=== PATIENT | male | born 1965 | race Hispanic/Latino ===

== ENCOUNTER 2024-05-31 12:09 | Emergency (ER) | payer OTHER | END 2024-05-31 13:37 | disposition home or self-care (01) | LOC: MADERS 12:09 | DX: H60.91 Unspecified otitis externa, right ear (principal); H73.91 Unspecified disorder of tympanic membrane, right ear; E11.9 Type 2 diabetes mellitus without complications; Z55.6 Problems related to health literacy | CPT/HCPCS: 99282 ==

== ENCOUNTER 2025-09-12 13:54 | Emergency (ER) | payer BC, SELFPAY ==
[2025-09-12] MEDS ORDERED: Vancomycin HCl 1.5 GM VIAL ONE (14:36)
[2025-09-12] MEDS ORDERED: Acetaminophen 500 MG TAB ONE (14:36)
[2025-09-12 14:58] LABS: INR-International Normal Ratio 1.5; Prothrombin Time 18.1 sec (12.0-14.7)
[2025-09-12 14:59] LABS: PTT 37.7 sec (22.9-36.1)
[2025-09-12 15:06] LABS: Hematocrit 32.0 % (42.0-52.0); Hemoglobin 10.9 g/dL (14.0-18.0); Manual Diff?? YES; Mean Corpuscular Hemoglobin 28.1 pg (27.0-31.0); Mean Corpuscular Volume 82.7 fl (78.0-98.0); Platelet Count 183 10x3/uL (130-400); Red Blood Cell (RBC) Count 3.87 mill/uL (4.70-6.10); White Blood Cell (WBC) Count 22.0 10x3/uL (4.8-10.8)
[2025-09-12 15:09] LABS: Bicarbonate (HCO3v) 24.5 mmol/L (22.0-28.0); CO2 Tension (PvCO2) 33.9 mmHg (42.0-51.0); Calcium, Ionized 1.06 mmol/L (1.15-1.33); Chloride 96 mmol/L (98-107); Hemoglobin - Calc 11.5 g/dL (14.0-18.0); Potassium 4.5 mmol/L (3.5-5.1); Sodium 130 mmol/L (138-145); T. Carbon Dioxide 25.6 mmol/L (22.0-28.0); Troponin I Less than 0.010 ng/mL (< 0.028); vO2 Saturation-calc 99.3 % (60.0-85.0)
[2025-09-12 15:10] LABS: ALT (SGPT) 24 U/L (Less than 45); AST (SGOT) 41 U/L (11-34); Albumin 2.3 g/dL (3.1-4.5); Alkaline Phosphatase 75 U/L (40-110); Anion Gap 16 mmol/L (10-20); BUN (Urea Nitrogen) 23 mg/dL (8.4-25.7); Bilirubin, Total 1.9 mg/dL (0.3-1.2); Calc. Creatinine Clearance 0 mL/min (70-130); Calcium 7.5 mg/dL (7.8-10.44); Carbon Dioxide 21 mmol/L (22-29); Chloride 97 mmol/L (98-107); Globulin 4.5 g/dL (2.4-3.5); Glucose 273 mg/dL (70-105); Magnesium 1.8 mg/dL (1.6-2.6); Potassium 4.1 mmol/L (3.5-5.1); Sodium 130 mmol/L (136-145)
[2025-09-12 15:18] LABS: MDiff Complete? YES
[2025-09-12 15:19] LABS: Platelet Adequacy Comment Appears Adequate
[2025-09-12] MEDS ORDERED: Cefepime 2 GM VIAL ONE (15:59)
[2025-09-12 18:33] LABS: Glucose, Urine (Dipstick) 500 mg/dL (Negative); Leukocyte Negative (Negative); Protein, Urine (Dipstick) 100 mg/dL (Neg-Trace); Specific Gravity, Urine 1.020 (1.005-1.030)
[2025-09-12 18:40] LABS: Cocaine Metabolite Screen Negative (Negative); THC/Cannabinoid Screen Negative (Negative); Tricyclic Screen Negative (Negative)
[2025-09-12 18:42] LABS: Bacteria/HPF Rare-Few HPF (None Seen); CAUTI Indications for Culture Alt mental st,lethar; WBC/HPF 0-3 HPF (0-3)
[2025-09-12 18:43] LABS: Mucous/LPF 2+ LPF (<2+); Urine Culture Reflex No No
== END 2025-09-12 20:07 | disposition short-term general hospital (02) ==
LOC: MADERS 13:54
DX: A41.9 Sepsis, unspecified organism (principal); R65.20 Severe sepsis without septic shock; E11.52 Type 2 diabetes mellitus with diabetic peripheral angiopathy with gangrene; E11.65 Type 2 diabetes mellitus with hyperglycemia; I10 Essential (primary) hypertension
CPT/HCPCS: 36416; 71045; 80053; 80306; 80307; 81001; 82010; 82330; 82803; 83605; 83735; 84484; 85025; 85610; 85730; 87040; 87086; 87428; 96365; 96366; 96367; 36415-59; J0692; J7030